=== PATIENT | female | born 1985 | race Caucasian/White ===

== ENCOUNTER 2016-12-04 11:47 | Emergency (ER) | payer BC, OTHER ==
[2016-12-04 12:23] VITALS: TEMP 99
--- NOTE | 2016-12-04 13:15 | ED ---
ENT HPI - General Chief complaint: ENT Stated complaint: hearing loss Time Seen by Provider: 12/04/16 12:39 Source: patient, RN notes reviewed Mode of arrival: ambulatory Limitations: no limitations - History of Present Illness Initial comments: 31-year-old female presented emergency Department chief complaint of congestion , right ear pressure hearing loss. Patient states this started a few days ago has not resolved. She is concerned about her right ear that she has difficulty hearing. She states she did use a Q-tip a few days ago noticed that there were some wax came out on it. Patient denies any fevers or chills was states she has a sore throat and cough. Patient states hurts every time she swallows. Patient denies any [id number] medication use at this time. - Related Data Home Medications Medication Instructions Recorded Confirmed ALPRAZolam [Xanax] 2 mg PO DAILY PRN 12/04/16 12/04/16 Dextroamphetamine/Amphetamine 20 mg PO TID 12/04/16 12/04/16 [Adderall] Previous Rx's Medication Instructions Recorded Azithromycin [Zithromax Z-pack] 0 mg PO DIRECTED #1 pack 12/04/16 Allergies Allergy/AdvReac Type Severity Reaction Status Date / Time codeine AdvReac Nausea & Verified 12/04/16 12:22 Vomiting Review of Systems ROS Statement: Those systems with pertinent positive or pertinent negative responses have been documented in the HPI. ROS Other: All systems not noted in ROS Statement are negative. Past Medical History Past Medical History: No Reported History History of Any Multi-Drug Resistant Organisms: None Reported Past Surgical History: Section Past Anesthesia/Blood Transfusion Reactions: No Reported Reaction, Postoperative Nausea & Vomiting (PONV) Past Psychological History: Anxiety, Bipolar, Depression Smoking Status: Never smoker Past Alcohol Use History: None Reported Past Drug Use History: None Reported - Past Family History Mother Family Medical History: No Reported History General Exam Limitations: no limitations General appearance: alert, in no apparent distress Head exam: Present: atraumatic, normocephalic, normal inspection Eye exam: Present: normal appearance, PERRL, EOMI. Absent: scleral icterus, conjunctival injection, periorbital swelling ENT exam: Present: mucous membranes moist. Absent: normal exam, normal oropharynx (Erythematous posterior pharynx), TM's normal bilaterally (Unable to visualize the right secondary to cerumen impaction), normal external ear exam ( Cerumen impaction right) Neck exam: Present: normal inspection, full ROM. Absent: tenderness, meningismus, lymphadenopathy Respiratory exam: Present: normal lung sounds bilaterally. Absent: respiratory distress, wheezes, rales, rhonchi, stridor Cardiovascular Exam: Present: regular rate, normal rhythm, normal heart sounds. Absent: systolic murmur, diastolic murmur, rubs, gallop, clicks Neurological exam: Present: alert, oriented X3, CN II-XII intact Skin exam: Present: warm, dry, intact, normal color. Absent: rash Course Vital Signs 12/04/16 12:18 Temperature 99.0 F Pulse Rate 100 Respiratory 16 Rate Blood Pressure 140/86 O2 Sat by Pulse 97 Oximetry Procedures - Ear Wax Removal Right Ear Cerumenolytic Used: 5-10% Sodium Bicarb solution Ear Canal Irrigated by: MATT Ear Canal Irrigated With: warm saline using syringe/angiocath TM Visible: TM(s) intact, normal appearance Ear Canal: atraumatic Patient Tolerated Procedure: well, no complications Complications: no problems Medical Decision Making - Medical Decision Making 31-year-old female presented for hearing loss on the right, congestion. Patient had cerumen impaction this was lavaged and states that she feels much better. Patient we treated for acute pharyngitis return parameters were discussed. Disposition Clinical Impression: Acute pharyngitis, Impacted cerumen of right ear Disposition: HOME SELF-CARE Condition: Stable Instructions: Pharyngitis (ED) Additional Instructions: Please return to the Emergency Department if symptoms worsen or any other concerns. Prescriptions: Azithromycin [Zithromax Z-pack] 0 mg PO DIRECTED #1 pack Referrals: Narayan Davenport MD [Primary Care Provider] - 1-2 days Time of Disposition: 13:15
[2016-12-04 13:40] VITALS: BP 138/76; PULSE 79; RESP 20
== END 2016-12-04 13:20 | disposition home or self-care (01) ==
LOC: EC 11:47
DX: J02.9 Acute pharyngitis, unspecified (principal); H61.21 Impacted cerumen, right ear; Z88.5 Allergy status to narcotic agent; Z79.899 Other long term (current) drug therapy
CPT/HCPCS: 99283

== ENCOUNTER 2017-02-04 13:16 | Emergency (ER) | payer BC, OTHER ==
[2017-02-04 13:46] VITALS: BP 136/83; PULSE 89; RESP 20; TEMP 97.4
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
== END 2017-02-04 17:55 | disposition home or self-care (01) ==
LOC: EC 13:16
DX: Z63.9 Problem related to primary support group, unspecified (principal); F32.9 Major depressive disorder, single episode, unspecified; Z79.899 Other long term (current) drug therapy; Z88.5 Allergy status to narcotic agent
CPT/HCPCS: 99284

== ENCOUNTER 2020-08-13 00:14 | Emergency (ER) | payer BC, OTHER ==
[2020-08-13 00:32] VITALS: PULSE 86; RESP 17; TEMP 98.7
[2020-08-13 00:55] LABS: Basophils % (A) 1 %; Eosinophils # (A) 0.1 k/uL (0-0.7); Eosinophils % (A) 1 %; HCT 30.1 % (34.0-46.0); HGB 10.3 gm/dL (11.4-16.0); Lymphocytes # (A) 1.7 k/uL (1.0-4.8); Lymphocytes % (A) 24 %; MCH 30.5 pg (25.0-35.0); MCHC 34.1 g/dL (31.0-37.0); MCV 89.4 fL (80.0-100.0); Mean Platelet Volume 7.5; Monocytes # (A) 0.5 k/uL (0-1.0); Monocytes % (A) 7 %; Neutrophils # (A) 4.6 k/uL (1.3-7.7); Neutrophils % (A) 65 %; Platelet Count 303 k/uL (150-450); Poikilocytosis Slight; RBC 3.37 m/uL (3.80-5.40); RDW 13.2 % (11.5-15.5)
[2020-08-13 01:04] LABS: African American GFR (CKD) >90 (>60 ml/min/1.73 sqM); Anion Gap 7 mmol/L; Blood Urea Nitrogen 8 mg/dL (7-17); Calcium 8.4 mg/dL (8.4-10.2); Carbon Dioxide 21 mmol/L (22-30); Chloride 107 mmol/L (98-107); Glucose 87 mg/dL (74-99); Non-African American GFR(CKD) >90 (>60 ml/min/1.73 sqM); Potassium 3.6 mmol/L (3.5-5.1); Sodium 135 mmol/L (137-145)
--- NOTE | 2020-08-13 02:56 | ED ---
General Adult HPI - General Chief complaint: Vaginal Bleeding Stated complaint: Vaginal Bleeding Time Seen by Provider: 08/13/20 01:02 Source: patient Mode of arrival: ambulatory Limitations: no limitations - History of Present Illness Initial comments: 34-year-old female patient presents to the emergency department today as a transfer from [facility] for retained products of conception. Patient was approximate 6 weeks when she had an elective . States that she went to the [facility] and was given pills. States that she did pass tissue was having bleeding which did start to improve. States 3 days ago she had increase in bleeding was passing very large blood clots. States her pain and bleeding worsened tonight so she went into the hospital. She had an extensive workup there including labs and ultrasound. Ultrasound showed possible retained products of conception. HCG level is 1800. She was transferred here for consultation with [facility]. She states that she has been feeling somewhat dizzy. Denies any current abdominal or back pain. States the bleeding seems to have slowed. She is A2 with 2 elective abortions. - Related Data Home Medications Medication Instructions Recorded Confirmed ALPRAZolam [Xanax] 2 mg PO DAILY PRN 12/04/16 12/04/16 Dextroamphetamine/Amphetamine 20 mg PO TID 12/04/16 12/04/16 [Adderall] Previous Rx's Medication Instructions Recorded Azithromycin [Zithromax Z-pack (6 0 mg PO DIRECTED #1 pack 12/04/16 tabs)] Allergies Allergy/AdvReac Type Severity Reaction Status Date / Time codeine AdvReac Nausea & Verified 12/04/16 12:22 Vomiting Review of Systems ROS Statement: Those systems with pertinent positive or pertinent negative responses have been documented in the HPI. ROS Other: All systems not noted in ROS Statement are negative. Past Medical History Past Medical History: No Reported History History of Any Multi-Drug Resistant Organisms: None Reported Past Surgical History: Section Past Anesthesia/Blood Transfusion Reactions: No Reported Reaction, Postoperative Nausea & Vomiting (PONV) Past Psychological History: Anxiety, Bipolar, Depression Smoking Status: Never smoker Past Alcohol Use History: None Reported Past Drug Use History: None Reported - Past Family History Mother Family Medical History: No Reported History General Exam Limitations: no limitations General appearance: alert, in no apparent distress, other (this is a well- developed, well-nourished adult female patient in no acute distress.) Eye exam: Present: normal appearance, PERRL, EOMI. Absent: scleral icterus, conjunctival injection, periorbital swelling ENT exam: Present: normal exam, normal oropharynx, mucous membranes moist Respiratory exam: Present: normal lung sounds bilaterally. Absent: respiratory distress, wheezes, rales, rhonchi, stridor Cardiovascular Exam: Present: regular rate, normal rhythm, normal heart sounds. Absent: systolic murmur, diastolic murmur, rubs, gallop, clicks GI/Abdominal exam: Present: soft, normal bowel sounds. Absent: distended, tenderness, guarding, rebound, rigid External exam: Present: normal external exam Speculum exam: Present: vaginal bleeding (mild, dark red), other (Cervical os is open. No blood clots noted at this time. ) Neurological exam: Present: alert, oriented X3, CN II-XII intact Psychiatric exam: Present: normal affect, normal mood Skin exam: Present: warm, dry, intact, normal color. Absent: rash Course Vital Signs 08/13/20 08/13/20 00:21 03:06 Temperature 98.7 F 98.7 F Pulse Rate 86 86 Respiratory 17 17 Rate Blood Pressure 151/96 145/65 O2 Sat by Pulse 99 99 Oximetry Medical Decision Making - Medical Decision Making 34-year-old female patient to underwent elective 2 weeks ago presented to [facility] for increased vaginal bleeding abdominal pain. Ultrasound showed retained products of conception and thickened endometrial stripe with an hCG level of 1800 so she was transferred here for [facility] consultation. Physical examination is unremarkable. Did perform pelvic examination which showed mild dark red vaginal bleeding. We did repeat CBC here showed hemoglobin of 10.3, she was 11.0 around 2030 this afternoon.I did discuss the case with on-call [facility] Dr. Zafar, after review of labs, ultrasound results, and physical exam he recommends outpatient follow up. She will be discharged with instructions to call in the morning for an appointment. Tra re turn parameters were discussed in detail. She verbalizes understanding and feels comfortable this plan. Case discussed with my attending Dr. Diehl. - Lab Data Result diagrams: 08/13/20 00:36 08/13/20 00:36 Lab Results 08/13/20 08/13/20 08/13/20 Range/Units 00:36 00:36 00:36 WBC 7.0 (3.8-10.6) k/uL RBC 3.37 L (3.80-5.40) m/uL Hgb 10.3 L (11.4-16.0) gm/dL Hct 30.1 L (34.0-46.0) % MCV 89.4 (80.0-100.0) fL MCH 30.5 (25.0-35.0) pg MCHC 34.1 (31.0-37.0) g/dL RDW 13.2 (11.5-15.5) % Plt Count 303 (150-450) k/uL MPV 7.5 Neutrophils % 65 % Lymphocytes % 24 % Monocytes % 7 % Eosinophils % 1 % Basophils % 1 % Neutrophils # 4.6 (1.3-7.7) k/uL Lymphocytes # 1.7 (1.0-4.8) k/uL Monocytes # 0.5 (0-1.0) k/uL Eosinophils # 0.1 (0-0.7) k/uL Basophils # 0.0 (0-0.2) k/uL Poikilocytosis Slight Sodium 135 L (137-145) mmol/L Potassium 3.6 (3.5-5.1) mmol/L Chloride 107 (98-107) mmol/L Carbon Dioxide 21 L (22-30) mmol/L Anion Gap 7 mmol/L BUN 8 (7-17) mg/dL Creatinine 0.54 (0.52-1.04) mg/dL Est GFR (CKD-EPI)AfAm >90 (>60 ml/min/1.73 sqM) Est GFR (CKD-EPI)NonAf >90 (>60 ml/min/1.73 sqM) Glucose 87 (74-99) mg/dL Calcium 8.4 (8.4-10.2) mg/dL Blood Type A Negative Blood Type Recheck A Neg Bld Type Recheck Status No Spec Expiration Date 08/16/20202335 - Radiology Data Radiology results: report reviewed Disposition Clinical Impression: Vaginal bleeding, Retained products of conception Disposition: HOME SELF-CARE Condition: Good Instructions (If sedation given, give patient instructions): Dysfunctional Uterine Bleeding (ED) Additional Instructions: Return to the emergency department immediately for any increase in bleeding, fainting, or extreme weakness. Follow-up outpatient with gabriela Garza on the morning for an appointment. Return for any other new, worsening, or concerning symptoms. Is patient prescribed a controlled substance at d/c from ED?: No Referrals: Narayan Davenport MD [Primary Care Provider] - 1-2 days Dez Zafar MD [STAFF PHYSICIAN] - 1-2 days Time of Disposition: 02:56
[2020-08-13 03:07] VITALS: BP 145/65
== END 2020-08-13 03:18 | disposition home or self-care (01) ==
LOC: EC 00:14
DX: O03.4 Incomplete spontaneous abortion without complication (principal); F41.9 Anxiety disorder, unspecified; F31.9 Bipolar disorder, unspecified; Z79.899 Other long term (current) drug therapy; Z98.890 Other specified postprocedural states; Z88.5 Allergy status to narcotic agent
CPT/HCPCS: 36415; 80048; 85025; 86850; 86870; 86880; 86900; 86901; 99284